=== PATIENT | male | born 1975 | race Two or more races ===

== ENCOUNTER 2016-07-04 07:40 | Emergency (ER) | payer SELFPAY ==
[~2016-07-04] VITALS: Ht 165.1 cm; Wt 122.5 kg
[2016-07-04] MEDS ORDERED: NKM (07:52)
[2016-07-04 08:00] VITALS: BP 138/82
[2016-07-04] MEDS ORDERED: Dicyclomine HCl 10mg/5ml oral soln ORAL ONE (08:00)
[2016-07-04] MEDS ORDERED: Mylanta II UD 30ml ORAL ONE (08:00)
[2016-07-04] MEDS ORDERED: Famotidine 20 MG/ 2ML VIAL IVP ONE (08:00)
[2016-07-04] MEDS ORDERED: Lidocaine 2% Visc 15ml soln ORAL ONE (08:00)
[2016-07-04 08:30] VITALS: BP 136/79
[2016-07-04 08:37] LABS: EOSINOPHILS % (AUTO) 2.8 % (0.0-3.0); LYMPHOCYTES % (AUTO) 14.5 % (20.0-45.0); MEAN CORPUSCULAR HEMOGLOBIN 29.3 PG (27.0-31.0); MEAN CORPUSCULAR HGB CONC 33.1 G/DL (32.0-36.0); MEAN CORPUSCULAR VOLUME 88 FL (80-99); MEAN PLATELET VOLUME 7.6 FL (6.5-10.1); MONOCYTES % (AUTO) 10.5 % (1.0-10.0); NEUTROPHILS % (AUTO) 71.4 % (45.0-75.0); PLATELET COUNT 263 K/UL (150-450); RED BLOOD COUNT 5.92 M/UL (4.70-6.10); RED CELL DISTRIBUTION WIDTH 12.9 % (11.6-14.8); WHITE BLOOD COUNT 12.7 K/UL (4.8-10.8)
[2016-07-04 08:55] LABS: ALANINE AMINOTRANSFERASE 21 U/L (3-41); ALBUMIN/GLOBULIN RATIO 1.5 (1.0-2.7); ANION GAP 16 (5-15); ASPARTATE AMINO TRANSFERASE 19 U/L (5-40); CALCIUM 8.5 mg/dL (8.6-10.2); CARBON DIOXIDE 22 mEQ/L (20-30); CHLORIDE 100 mEQ/L (98-107); CREATININE 0.9 mg/dL (0.7-1.2); GLOMERULAR FILTRATION RATE > 60 mL/min (>60); HEMOLYSIS 15; LIPASE 53 U/L (< 60); POTASSIUM 4.3 mEQ/L (3.4-4.9); SODIUM 138 mEQ/L (135-145); TOTAL PROTEIN 6.7 g/dL (6.6-8.7)
--- NOTE | 2016-07-04 09:14 | Emergency Room Report ---
History of Present Illness General Chief Complaint: Diarrhea Source: Patient Present Illness HPI 40-year-old male presents ED complaining of abdominal pain with vomiting and diarrhea. States symptoms started a few days ago. Started a few days after he returned from trip to [place]. Notes multiple watery loose stools. Notes cramping abdominal pain, 5/10, nonradiating. Eyes fevers or chills. Denies chest pain or shortness of breath. No other aggravating relieving factors. Denies any other associated symptoms Allergies: Coded Allergies: Shrimp (Verified Allergy, Unknown, 07/04/16) Patient History Past Medical History: asthma Past Surgical History: none Pertinent Family History: none Social History: Denies: alcohol use, drug use, smoking Immunizations: UTD Reviewed Nursing Documentation: PMH: Agreed, PSxH: Agreed Nursing Documentation-PMH Past Medical History: No History, Except For Hx Asthma: Yes Review of Systems All Other Systems: negative except mentioned in HPI Physical Exam Vital Signs Date Time Temp Pulse Resp B/P Pulse Ox O2 Delivery O2 Flow Rate FiO2 07/04/16 07:45 97.9 86 16 133/84 95 Room Air Sp02 EP Interpretation: reviewed, normal General Appearance: no apparent distress, alert, GCS 15, non-toxic Head: normocephalic, atraumatic Eyes: bilateral eye PERRL, bilateral eye normal inspection ENT: hearing grossly normal, normal pharynx, no angioedema, normal voice Neck: full range of motion, supple/symm/no masses Respiratory: chest non-tender, lungs clear, normal breath sounds, speaking full sentences Cardiovascular #1: regular rate, rhythm, no edema Cardiovascular #2: 2+ carotid (R), 2+ carotid (L), 2+ radial (R), 2+ radial (L) , 2+ dorsalis pedis (R), 2+ dorsalis pedis (L) Gastrointestinal: normal bowel sounds, soft, non-distended, no guarding, no rebound, tenderness Rectal: deferred Genitourinary: normal inspection, no CVA tenderness Musculoskeletal: back normal, gait/station normal, normal range of motion, non- tender Neurologic: alert, oriented x3, responsive, motor strength/tone normal, sensory intact, speech normal Psychiatric: judgement/insight normal, memory normal, mood/affect normal, no suicidal/homicidal ideation Reflexes: 3+ bicep (R), 3+ bicep (L), 3+ tricep (R), 3+ tricep (L), 3+ knee (R) , 3+ knee (L) Skin: normal color, no rash, warm/dry, well hydrated Lymphatic: no adenopathy Medical Decision Making Diagnostic Impression: Primary Impression: Gastroenteritis ER Course Hospital Course 40-year-old M presents to ED with cramping abdominal pain with vomiting, diarrhea differential diagnosis: gastritis, SBO, cholecystits, gastroenteritis Clinical course Patient placed on stretcher. On [employer]ulsion [employer] service [employer]. After initial history and physical I ordered labs, IV fluids, Zofran and Zantac Labs - noted leukocytosis, electrolytes, LFTs normal, UA unremarkable Given IV dose of Cipro here Upon reassessment, patient states pain has improved. findings consistent with gastroenteritis. Given traveled from [place] we will treat with antibiotics I feel this is a highly complex case requiring extensive working including EKG/ Rhythm strip, Xray/CT/US, Blood/urine lab work, repeat exams while in ED, and administration of strong opiates/narcotics for pain control, admission to hospital or close patient follow up. Diagnosis - gastroenteritis Stable and discharged to home with prescriptions for Cipro, Bentyl. Followup with PMD. Return to ED if symptoms recur or worsen Labs Test 07/04/16 08:10 White Blood Count 12.7 K/UL (4.8-10.8) Red Blood Count 5.92 M/UL (4.70-6.10) Hemoglobin 17.4 G/DL (14.2-18.0) Hematocrit 52.4 % (42.0-52.0) Mean Corpuscular Volume 88 FL (80-99) Mean Corpuscular Hemoglobin 29.3 PG (27.0-31.0) Mean Corpuscular Hemoglobin Concent 33.1 G/DL (32.0-36.0) Red Cell Distribution Width 12.9 % (11.6-14.8) Platelet Count 263 K/UL (150-450) Mean Platelet Volume 7.6 FL (6.5-10.1) Neutrophils (%) (Auto) 71.4 % (45.0-75.0) Lymphocytes (%) (Auto) 14.5 % (20.0-45.0) Monocytes (%) (Auto) 10.5 % (1.0-10.0) Eosinophils (%) (Auto) 2.8 % (0.0-3.0) Basophils (%) (Auto) 1.0 % (0.0-2.0) Sodium Level 138 mEQ/L (135-145) Potassium Level 4.3 mEQ/L (3.4-4.9) Chloride Level 100 mEQ/L (98-107) Carbon Dioxide Level 22 mEQ/L (20-30) Anion Gap 16 (5-15) Blood Urea Nitrogen 19 mg/dL (7-23) Creatinine 0.9 mg/dL (0.7-1.2) Estimat Glomerular Filtration Rate > 60 mL/min (>60) Glucose Level 100 mg/dL (74-106) Calcium Level 8.5 mg/dL (8.6-10.2) Total Bilirubin 0.4 mg/dL (0.0-1.2) Aspartate Amino Transf (AST/SGOT) 19 U/L (5-40) Alanine Aminotransferase (ALT/SGPT) 21 U/L (3-41) Alkaline Phosphatase 67 U/L (40-129) Total Protein 6.7 g/dL (6.6-8.7) Albumin 4.1 g/dL (3.5-5.2) Globulin 2.6 g/dL Albumin/Globulin Ratio 1.5 (1.0-2.7) Lipase 53 U/L (< 60) Last Vital Signs Date Time Temp Pulse Resp B/P Pulse Ox O2 Delivery O2 Flow Rate FiO2 07/04/16 08:30 79 29 136/79 98 Room Air 07/04/16 07:45 97.9 Status: improved Disposition: HOME, SELF-CARE Condition: Stable Scripts Ciprofloxacin Hcl* (CIPROFLOXACIN HCL*) 500 Mg Tablet 500 MG ORAL Q12H for 3 Days, TAB 0 Refills Prov: DILSHAD ZIEGLER M.D. 07/04/16 Referrals: NOT CHOSEN BLESSING/,REFERRING (PCP) DILSHAD ZIEGLER M.D. Jul 04, 2016 09:14
[2016-07-04] MEDS ORDERED: CIPROFLOXACIN500 M2 ORAL (09:15)
[2016-07-04] MEDS ORDERED: BENTYL10 MG ORAL (09:18)
[2016-07-04 09:40] VITALS: BP 132/67
== END 2016-07-04 09:40 | disposition home or self-care (01) ==
LOC: EMR 08:12
DX: K52.9 Noninfective gastroenteritis and colitis, unspecified (principal); J45.909 Unspecified asthma, uncomplicated
CPT/HCPCS: 36415; 80053; 83690; 85025; 96374; 96375; 99284; J0744; J2405; S0028